=== PATIENT | female | born 2005 | race Caucasian/White ===

== ENCOUNTER 2023-07-25 14:04 | Emergency (ER) | payer OTHER, SELFPAY ==
[2023-07-25 14:11] VITALS: BP 95/52
--- NOTE | 2023-07-25 14:30 | ED.GENMED ---
History of Present Illness
<Marbin Lackey PA-C - Last Filed: 07/27/23 09:43>
General
Chief Complaint: Abdominal Pain
Source: patient
Time Seen by Provider: 07/25/23 14:18
Travel History
Have you had any contact with someone who has COVID-19?: No
Do you have any symptoms of coronavirus? Fever > 100 degrees, chills, cough, shortness of breath, sore throat, loss of taste or smell, muscle aches, or headache?: No
History of Present Illness
History of Present Illness:
18-year-old female with no significant past medical history present emergency department for evaluation of lower abdominal pain that began this morning upon awakening accompanied with nausea. Patient describes the pain to be a constant cramping
sensation but intermittent bursts of sharp or stabbing pain. Patient took a Zofran with minimal relief earlier today. No other associated symptoms. Patient started her menstrual today but states that this is not a typical menstrual symptoms/pain
for her. She denies any fevers, chills, rigors, dysuria, hematuria, back or flank pain or any other concerns. Denies any history of similar. No previous surgical history on her abdomen. Social history was significant for vaping but otherwise no
other complications.
Past History
<Marbin Lackey PA-C - Last Filed: 07/27/23 09:43>
Past History
ED Past Medical History: None
ED Past Surgical History: None
Social History
Tobacco: Vaping
Alcohol: None
Drug: None
Personal: Single
Living: with family
Review of Systems
<Marbin Lackey PA-C - Last Filed: 07/27/23 09:43>
Review of Systems
All Other Systems: ROS reviewed and negative except as documented in HPI and ROS
Phy Exam
<Marbin Lackey PA-C - Last Filed: 07/27/23 09:43>
Physical Exam
Physical Exam:
GENERAL: Alert , appears upset and uncomfortable
EYE: clear conjunctiva b/l
HEAD: NCAT
ENT: o/p clr, mmm.
CARDIAC: Regular rate and rhythm .
LUNGS: Clear breath sounds bilaterally, no acute respiratory distress, no wheezes/rales/rhonchi
ABDOMEN: Soft, suprapubic tenderness, no r/g, no cvat
NEUROLOGICAL: Alert and oriented
SKIN: Warm and dry, skin intact.
MUSCULOSKELETAL: No edema, well perfused.
PSYCH: Normal and appropriate interaction.
Scores
<Marbin Lackey PA-C - Last Filed: 07/27/23 09:43>
Heart Failure Risk
Heart Failure Risk Score: Not Applicable
Heart Score for Chest Pain Patients
STEMI patient?: Not applicable
Withdrawal Assessment of Alcohol
Withdrawal Assessment Completed?: Not applicable
Course
<Marbin Lackey PA-C - Last Filed: 07/27/23 09:43>
Orders/Labs/Results
Orders:
Orders
07/25/23 14:24
US Pelvis W Transvag Combined Urgent
Reason For Exam: lower abd pain
07/25/23 14:25
0.9% Sodium Chloride 1000 ml [Nss] 1,000 ml IV BOLUS
Ketorolac [Toradol] 30 mg IV NOW STA
Ondansetron Injectable [Zofran] 4 mg IV NOW STA
Test Result ONCE
07/25/23 14:37
Complete Blood Count/With Diff Urgent
Comprehensive Metabolic Panel Urgent
HCG, Serum Qualitative Screen Urgent
Lipase Urgent
07/25/23 15:13
CT Abd/pel W Iv And Oral Contr Urgent
Comment:
Reason For Exam: lower abd pain
Iohexol [Omnipaque] See Protocol PO NOW STA
07/25/23 16:40
Urinalysis Reflex To Culture Urgent
Date Specimen was Collected: 07/25/23
Time Specimen was Collected: 16:32
Urine Microscopic Reflex Cult Urgent
07/25/23 18:24
Vital Signs- Treatment ONCE
Frequency: Once
Abnormal Lab Results
07/25/23 07/25/23
14:37 16:40
WBC 14.4 H 10^3/uL
(4.8-10.8)
MPV 11.7 H fL
(7.4-10.4)
Abs Immat Gran (auto) 0.1 H 10^3/uL
(0-0.05)
Absolute Neuts (auto) 10.2 H 10^3/uL
(1.4-6.5)
Absolute Monos (auto) 0.9 H 10^3/uL
(0.1-0.6)
Creatinine 0.5 L mg/dL
(0.6-1.0)
Ur Occult Blood Reflex 3+ A
(Negative)
Urine RBC 7-10 A /HPF
(0-2)
Urine Bacteria (Reflex) Few A
(Negative)
07/25/23 14:37
07/25/23 14:37
Vital Signs
Initial and Last Documented VS:
Initial Vital Signs
Temp Pulse Resp BP
98.0 F 64 18 95/52
07/25/23 14:11 07/25/23 14:11 07/25/23 14:11 07/25/23 14:11
Last Documented Vital Signs
Temp Pulse Resp BP Pulse Ox
98.0 F 64 18 99/45 99
07/25/23 14:11 07/25/23 18:34 07/25/23 18:34 07/25/23 18:34 07/25/23 18:34
<TYLOR Choi - Last Filed: 07/25/23 18:25>
Orders/Labs/Results
Orders:
Orders
07/25/23 14:24
US Pelvis W Transvag Combined Urgent
Reason For Exam: lower abd pain
07/25/23 14:25
0.9% Sodium Chloride 1000 ml [Nss] 1,000 ml IV BOLUS
Ketorolac [Toradol] 30 mg IV NOW STA
Ondansetron Injectable [Zofran] 4 mg IV NOW STA
Test Result ONCE
07/25/23 14:37
Complete Blood Count/With Diff Urgent
Comprehensive Metabolic Panel Urgent
HCG, Serum Qualitative Screen Urgent
Lipase Urgent
07/25/23 15:13
CT Abd/pel W Iv And Oral Contr Urgent
Comment:
Reason For Exam: lower abd pain
Iohexol [Omnipaque] See Protocol PO NOW STA
07/25/23 16:40
Urinalysis Reflex To Culture Urgent
Date Specimen was Collected: 07/25/23
Time Specimen was Collected: 16:32
Urine Microscopic Reflex Cult Urgent
07/25/23 18:24
Vital Signs- Treatment ONCE
Frequency: Once
Abnormal Lab Results
07/25/23 07/25/23
14:37 16:40
WBC 14.4 H 10^3/uL
(4.8-10.8)
MPV 11.7 H fL
(7.4-10.4)
Abs Immat Gran (auto) 0.1 H 10^3/uL
(0-0.05)
Absolute Neuts (auto) 10.2 H 10^3/uL
(1.4-6.5)
Absolute Monos (auto) 0.9 H 10^3/uL
(0.1-0.6)
Creatinine 0.5 L mg/dL
(0.6-1.0)
Ur Occult Blood Reflex 3+ A
(Negative)
Urine RBC 7-10 A /HPF
(0-2)
Urine Bacteria (Reflex) Few A
(Negative)
07/25/23 14:37
07/25/23 14:37
Vital Signs
Initial and Last Documented VS:
Initial Vital Signs
Temp Pulse Resp BP
98.0 F 64 18 95/52
07/25/23 14:11 07/25/23 14:11 07/25/23 14:11 07/25/23 14:11
Last Documented Vital Signs
Temp Pulse Resp BP Pulse Ox
98.0 F 64 18 99/45 99
07/25/23 14:11 07/25/23 18:34 07/25/23 18:34 07/25/23 18:34 07/25/23 18:34
<Marbin Lackey PA-C - Last Filed: 07/27/23 09:43>
MDM/Problems Addressed
Differential Diagnosis Includes:
Ovarian cyst, ovarian torsion, , dysmenorrhea, urinary tract infection, appendicitis
MDM/Problems Addressed:
18-year-old female present emergency department for evaluation of lower abdominal discomfort that started today, no relief with Zofran earlier. Arrives with suprapubic tenderness. Given patient's menstrual started today combined with her
presenting symptoms I do feel like her symptoms are most likely related to her menstrual period will treat with Toradol and Zofran as well as fluids through her IV. Lab work ordered. Ultrasound of the pelvis was also ordered. Reassessment
following.
<TYLOR Choi - Last Filed: 07/25/23 18:25>
MDM/Problems Addressed
MDM/Problems Addressed:
18-year-old female present emergency department for evaluation of lower abdominal discomfort that started today, no relief with Zofran earlier. Arrives with suprapubic tenderness. Given patient's menstrual started today combined with her
presenting symptoms I do feel like her symptoms are most likely related to her menstrual period will treat with Toradol and Zofran as well as fluids through her IV. Lab work ordered. Ultrasound of the pelvis was also ordered. Reassessment
following.
175: Patient reexamined by myself patient with very mild lower abdominal suprapubic tenderness pelvic ultrasound negative. Patient did go to CAT scan await results.
1819: No acute inflammatory process within the abdomen or pelvis no bowel obstruction no obstructive uropathy nonspecific trace free fluid in the pelvis. Pt in no distress looks well. non toxic possible related to menses. will d/c w/ pcp/home staging specialist f/u.
<Marbin Lackey PA-C - Last Filed: 07/27/23 09:43>
*Pulse Oximetry
Patient hypoxic: no
<TYLOR Choi - Last Filed: 07/25/23 18:25>
*Radiology
Radiology exam reviewed: radiology read reviewed (Pelvic US unremarkable )
*Critical Care Note
Total Time (30-74mins, 75-104mins- exclusive of procedures): Not Applicable
ED Attending Note
<Marbin Lackey PA-C - Last Filed: 07/27/23 09:43>
-
Portions of this chart may have been created with voice recognition software.� Occasional wrong word or��sound alike� substitutions may have occurred due to the inherent limitations of voice recognition software.
Discharge Plan
Departure
Patient Disposition: Home (Routine Discharge)
Date of Disposition: 07/25/23
Time of Disposition: 18:24
Patient with high blood pressure during this ER visit?: No
Condition: Fair
Covid-19: Not Applicable
Discharge Problem:
Abdominal pain
Instructions: Abdominal Pain
Referrals:
Cristian Downey MD [Family Provider] -
Activity Restrictions/Additional Instructions:
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 Return if any worsening of symptoms
Interventions
Interventions:
*General Assessment Last Done: 07/25/23 14:11
ED- Fall Risk Assessment Last Done: 07/25/23 15:35
*ED COVID-19 Vaccine History Last Done: 07/25/23 14:11
*Nursing Disposition Last Done: 07/25/23 18:41
MJ-Qpmtfr-Mjesvfltla Assessment Last Done: 07/25/23 15:35
Discharge Date and Time
Discharge Date/Time: 07/25/23 18:44
[2023-07-25] MEDS: TORADOL 30 MG IV (14:33)
[2023-07-25] MEDS: ZOFRAN 4 MG IV (14:33)
[2023-07-25] MEDS: NSS 1000 IV (14:36)
[2023-07-25 14:54] LABS: % Basophils 0.4 % (0-2); % Eosinophils 1.7 % (0-6); % Immature Granulocytes 0.3 % (0-0.5); % Lymphocytes 20.5 % (20.5-51.1); % Monocytes 6.1 % (1.7-9.3); Absolute Basophils 0.1 10^3/uL (0-0.2); Absolute Eosinophils 0.3 10^3/uL (0-0.7); Absolute Immature Granulocytes 0.1 10^3/uL (0-0.05); Absolute Lymphocytes 2.9 10^3/uL (1.2-3.4); Absolute Monocytes 0.9 10^3/uL (0.1-0.6); Absolute Neutrophils 10.2 10^3/uL (1.4-6.5); Hematocrit 37.2 % (37.0-47.0); Hemoglobin 12.8 g/dL (12.0-16.0); Mean Corp Hgb Conc. 34.4 g/dL (33.0-37.0); Mean Corpuscular Volume 87.1 fL (81.0-99.0); Mean Platelet Volume 11.7 fL (7.4-10.4); Nucleated Red Blood Cells % 0 %; Platelet Count 297 10^3/uL (130-400); Red Blood Cell Count 4.27 10^6/uL (4.20-5.40); Red Cell Dist. Width 12.3 % (11.5-14.5); White Blood Cell Count 14.4 10^3/uL (4.8-10.8)
[2023-07-25 15:07] LABS: HCG, Serum Qualitative Screen Negative
[2023-07-25 15:09] LABS: ALT (SGPT) 13 U/L (0-35); AST (SGOT) 22 U/L (14-36); Albumin 4.5 g/dl (3.5-5.0); Alkaline Phosphatase 72 U/L (38-126); Blood Urea Nitrogen 12 mg/dl (7-17); Calcium 9.5 mg/dl (8.4-10.2); Carbon Dioxide 24 mmol/L (22-30); Chloride 107 mmol/L (98-107); Glucose 99 mg/dl (70-99); Lipase 85 U/L (23-300); Potassium 3.7 mmol/L (3.5-5.1); Sodium 137 mmol/L (135-145); Total Bilirubin 0.6 mg/dl (0.2-1.3); Total Protein 7.4 g/dl (6.3-8.2); eGFR > 60.00
[2023-07-25] MEDS: OMNIPAQUE 50 ML PO (15:23)
[2023-07-25 16:48] LABS: Urine Albumin Negative (Neg - Trace); Urine Bilirubin Negative (Negative); Urine Character Clear (Clear); Urine Color Yellow; Urine Glucose Negative (Negative); Urine Ketone Negative (Negative); Urine Leukocyte Negative (Negative); Urine Nitrite Negative (Negative); Urine Occult Blood 3+ (Negative); Urine Urobilinogen Negative (Neg - 1+)
[2023-07-25 16:58] LABS: Urine Bacteria Few (Negative); Urine White Cell 0-2 /HPF (0-5)
[2023-07-25 18:34] VITALS: BP 99/45
== END 2023-07-25 18:44 | disposition home or self-care (01) ==
LOC: EMR 14:04
PROVIDERS: Physician Assistant Medical; EMERGENCY PHYSICIAN Student in an Organized Health Care Education/Training Program; FAMILY PHYSICIAN Family Medicine
DX: R10.30 Lower abdominal pain, unspecified (principal)
CPT/HCPCS: 99285; 96374; 96375; 96361 ×2; 74177; 76830; 76856; 80053; 81003; 81015; 83690; 84703; 85025; Q9967